=== PATIENT | female | born 1990 ===

== ENCOUNTER 2021-12-03 10:22 | Inpatient (IN) ==
[2021-12-04] MEDS ORDERED: LIDOCAINE 1% LOCAL 20 ML VIAL INFIL PRN (02:07)
[2021-12-04] MEDS ORDERED: SODIUM CHLORIDE 0.9% INJ 10 ML VIAL ONE (02:12)
[2021-12-04] MEDS ORDERED: LIDOCAINE 2%/EPINEPHRINE 1:200,000 20 ML SDV ONE (02:12)
[2021-12-04] MEDS ORDERED: BUPIVACAINE 0.25% 30 ML VIAL ONE (02:12)
[2021-12-04] MEDS ORDERED: ePHEDrine sulfate 50 MG/ML AMP ONE (02:12)
[2021-12-04] MEDS ORDERED: fentaNYL citrate 100 MCG/2 ML VIAL ONE (02:12)
[2021-12-04] MEDS ORDERED: fentaNYL 2MCG/ML ROPIVACAINE 1.25MG/ML 100 ML BAG EPI ONE (02:13)
[2021-12-04] MEDS ORDERED: PROMETHAZINE HCL 6.25 MG in SODIUM CHLORIDE 0.9% 50 ML IV PRN (02:19)
[2021-12-04] MEDS ORDERED: diphenhydrAMINE 50 MG/ML VIAL IV PRN (02:19)
[2021-12-04] MEDS ORDERED: fentaNYL 2MCG/ML ROPIVACAINE 1.25MG/ML 100 ML BAG EPI PRN (02:19)
[2021-12-04] MEDS ORDERED: ePHEDrine sulfate 50 MG/ML AMP IV PRN (02:19)
[2021-12-04] MEDS ORDERED: ONDANSETRON INJ 2 MG/ML 2 ML VIAL IV PRN (02:19)
[2021-12-04] MEDS ORDERED: NALBUPHINE HCL INJ 10 MG/ML AMP IV PRN (02:19)
[2021-12-04] MEDS ORDERED: NALOXONE HCL 0.4 MG/1 ML VIAL/CARP IV PRN (02:19)
[2021-12-04] MEDS ORDERED: NALOXONE HCL 1 MG in SODIUM CHLORIDE 0.9% 1000ML 1,000 ML IV PRN (02:19)
--- NOTE | 2021-12-04 02:20 | Anesthesiology Consultation ---
Date of Service December 04, 2021 Assessment & Plan Chart Review Chart Review: Patient NOT seen in Pre Admission Testing and Acceptable Risk for Labor Epidural Consults Requested none ASA ASA2 Proposed Anesthesia Anesthesia Type: Labor Epidural Risk / Benefits Reviewed With: PT / POA / Parent / Guardian, Accepts Plan and Informed Consent Obtained History Allergies Allergy/AdvReac Type Severity Reaction Status Date / Time bacitracin Allergy itchy, Verified 12/02/21 13:52 [From Triple Antibiotic] swelling gold Au 198 Allergy itchy, Verified 12/02/21 13:52 swelling neomycin Allergy itchy, Verified 12/02/21 13:52 [From Triple Antibiotic] swelling polymyxin B Allergy itchy, Verified 12/02/21 13:52 [From Triple Antibiotic] swelling Medications Home Medications Medication Instructions Recorded Confirmed Last Taken fluocinolone acetonide oil 0.01 % 5 drp otic (ear) BID PRN pain and 01/02/20 12/02/21 Unknown ear drops pruritis 0 days #20 mL prenat.vits,amari,[id number] 1 tab PO DAILY 04/14/21 12/02/21 Unknown ondansetron HCl 4 mg tablet 4 mg PO Q6H PRN nausea and 09/29/21 12/02/21 Unknown vomiting #20 tabs Past Medical History Medical History (Updated 04/14/21 @ 11:16 by Nichol LEO, ANDREZ) Asthma Sports induced History of chicken pox Itching of ear Otalgia Seasonal allergies Shoulder pain sports related Exercise / Class Metabolic Activity II 4-5 Yardwork/Stairs/Walk up hill Past Family History Family History (Updated 04/14/21 @ 10:59 by Nichol LEO RN) Aunt Hearing loss Grandfather Hearing loss Stroke Father Hypertension Grandmother Stroke Cancer Mother Allergies Sister Asthma Sister Down syndrome Sister ADHD Aunt Breast cancer Denies family history of Ovarian cancer No family history of adverse response to anesthesia No family history of bleeding disorder Heart disease Colorectal cancer Uterine cancer Past Surgical History Surgical History (Updated 04/14/21 @ 11:16 by Nichol LEO RN) Club-foot Club foot surgery H/O repair of right rotator cuff History of arthroplasty of left shoulder May 2020 Past Anesthesia History No Hx of Anesthesia Complications and No Family Hx of Anesthesia Complications History of PONV No Hx of PONV and No Hx of Motion Sickness Social History Smoking Status: Never smoker Hx Alcohol Use: No Hx Substance Use: No Physical Exam Vital Signs Last Vital Signs Pulse 77 12/04/21 01:58 BP 131/100 12/04/21 01:58 ENMT Mouth: no dentition abnormality Thyromental Distance: > or= 3.5 Finger Breadths Mallampati Class: II Neck normal visual inspection Respiratory normal respiratory effort Auscultation: lungs clear to auscultation bilaterally Cardiovascular Rate/Rhythm: regular rate and regular rhythm Psychiatric Orientation: alert
[2021-12-04] MEDS: LACTATED RINGER'S 1,000 ML IV PRN ×3 (02:22→11:15)
[2021-12-04 02:43] LABS: Hemoglobin 13.2 g/dl (12.0-16.0); Mean Corpuscular Hemoglobin 29.2 pg (25.0-34.0); Mean Corpuscular Hgb Conc 33.8 g/dL (32.0-36.0); Mean Corpuscular Volume 86.3 fL (80.0-100.0); Mean Platelet Volume 10.7 fL (9.4-12.3); Platelet Count 195 K/uL (130-400); RDW Coefficient of Variation 12.9 % (11.5-14.5); RDW Standard Deviation 40.3 fL (36.4-46.3); Red Blood Count 4.52 M/uL (3.93-5.22); White Blood Count 13.55 K/ul (4.8-10.8)
--- NOTE | 2021-12-04 07:10 | History & Physical Report ---
Date of Service December 04, 2021 Assessment & Plan (1) Normal labor: Plan: admit, epidural, expect Admission and Anticipated Discharge Date Admission Date: December 04, 2021 History of Present Illness Chief Complaint: labor MARGRET Calculator Estimated Delivery Date Method Current WG Current Estimate 12/03/21 Ultrasound #1 39w 6d Other Estimates 11/25/21 LMP (Certain) 41w 0d LMP: 02/18/21 : 1 Full term: 0 Premature: 0 Total Number of Induced Abortions: 0 Total Number of Spontaneous Abortions: 0 Ectopics: 0 Multiple births: 0 Number of Living Children: 0 and Delivery Plans Moderna COVID vaccine *06/14/20 *07/12/20 *Booster 09/19/21 Primary Care Provider: Elaine Alejandro PA-C Allergies Allergy/AdvReac Type Severity Reaction Status Date / Time bacitracin Allergy itchy, Verified 12/04/21 03:01 [From Triple Antibiotic] swelling gold Au 198 Allergy itchy, Verified 12/04/21 03:01 swelling neomycin Allergy itchy, Verified 12/04/21 03:01 [From Triple Antibiotic] swelling nickel Allergy Rash Verified 12/04/21 05:08 polymyxin B Allergy itchy, Verified 12/04/21 03:01 [From Triple Antibiotic] swelling Home Medications Medication Instructions Recorded Confirmed Type fluocinolone acetonide oil 0.01 % 5 drp otic (ear) BID PRN pain and 01/02/20 12/04/21 Rx ear drops pruritis 0 days #20 mL prenat.vits,amari,[id number] 1 tab PO DAILY 04/14/21 12/04/21 History ondansetron HCl 4 mg tablet 4 mg PO Q6H PRN nausea and 09/29/21 12/04/21 Rx vomiting #20 tabs albuterol 90 mcg/actuation aerosol 1 mcg inhalation DAILY PRN Allergy 12/04/21 12/04/21 History inhaler Symptoms doxylamine succinate 25 mg tablet 25 mg PO HS PRN Nausea 12/04/21 12/04/21 History (Unisom (doxylamine)) vitamin B6-vitamin E-magnesium 1 tab PO DAILY PRN Nausea 12/04/21 12/04/21 History tablet Patient History Medical History (Updated 12/04/21 @ 07:09 by Tim Doyle MD, FACOG) Asthma Sports induced- PRN use of asthma History of chicken pox Itching of ear Otalgia Seasonal allergies Shoulder pain sports related Surgical History Club-foot Club foot surgery H/O repair of right rotator cuff History of arthroplasty of left shoulder May 2020 Family History (Updated 04/14/21 @ 10:59 by Nichol LEO RN) Aunt Hearing loss Grandfather Hearing loss Stroke Father Hypertension Grandmother Stroke Cancer Mother Allergies Sister Asthma Sister Down syndrome Sister ADHD Aunt Breast cancer Denies family history of Ovarian cancer No family history of adverse response to anesthesia No family history of bleeding disorder Heart disease Colorectal cancer Uterine cancer Social History (Updated 12/04/21 @ 03:51 by Estrellita Diehl, RN) Smoking Status: Never smoker Hx Alcohol Use: No Hx Substance Use: No Preferred Language: Italian Communication Ability: Effective Bow Tacker Required: No Beliefs That Will Affect Care: None marital status: marital status details: Fredy Beverly (30) [phone] Current Living Situation: Spouse Current Living Situation Comment: [facility] current occupational status: employed current occupation: [employer] How many Children do You have: 0 Other Information That Helps Us Care for You: No Feels Safe at Home: Yes Safety Concerns: Feels Safe At This Time Physical Activity Frequency: 5-6 Times per Week Physical Activity Frequency Comment: former volleyball, basketball; now kickboxing Assistive Devices: None Results & Data ([facility]) Vital Signs (Past 12 Hours) Vital Signs Temp Pulse Resp BP Pulse Ox O2 Del Method 12/04/21 03:05 98.1 F 18 Room Air 12/04/21 07:00 18 12/04/21 07:00 18 12/04/21 07:03 99 12/04/21 07:03 92 H 12/04/21 06:58 97 12/04/21 06:58 91 H 12/04/21 06:54 90 12/04/21 06:54 124/83 12/04/21 06:53 98 12/04/21 06:53 87 12/04/21 06:48 97 12/04/21 06:48 88 12/04/21 06:43 98 12/04/21 06:43 96 H 12/04/21 06:40 84 12/04/21 06:40 126/88 12/04/21 06:38 98 12/04/21 06:38 96 H 12/04/21 06:30 18 12/04/21 06:30 18 12/04/21 06:33 98 12/04/21 06:33 84 12/04/21 06:28 98 12/04/21 06:28 91 H 12/04/21 06:24 97 H 12/04/21 06:24 126/98 12/04/21 06:23 99 12/04/21 06:23 89 12/04/21 06:18 99 12/04/21 06:18 94 H 12/04/21 06:13 99 12/04/21 06:13 83 12/04/21 06:08 100 12/04/21 06:08 96 H 12/04/21 06:00 18 12/04/21 06:00 18 12/04/21 06:03 99 12/04/21 06:03 92 H 12/04/21 05:39 98.1 F 12/04/21 05:58 99 12/04/21 05:58 103 H 12/04/21 05:54 83 12/04/21 05:54 136/93 12/04/21 05:53 100 12/04/21 05:53 116 H 12/04/21 05:48 98 12/04/21 05:48 107 H 12/04/21 05:43 97 12/04/21 05:43 81 12/04/21 05:40 85 12/04/21 05:40 125/78 12/04/21 05:38 98 12/04/21 05:38 93 H 12/04/21 05:30 18 12/04/21 05:30 18 12/04/21 05:33 97 12/04/21 05:33 89 12/04/21 05:28 97 12/04/21 05:28 82 12/04/21 05:24 75 12/04/21 05:24 133/78 12/04/21 05:23 97 12/04/21 05:23 76 12/04/21 05:18 97 12/04/21 05:18 75 12/04/21 05:13 97 12/04/21 05:13 92 H 12/04/21 05:10 105 H 12/04/21 05:10 115/78 12/04/21 05:08 97 12/04/21 05:08 81 12/04/21 05:00 18 12/04/21 05:00 18 12/04/21 05:03 97 12/04/21 05:03 76 12/04/21 04:58 97 12/04/21 04:58 82 12/04/21 04:55 76 12/04/21 04:55 124/77 12/04/21 04:53 96 12/04/21 04:53 78 12/04/21 04:48 97 12/04/21 04:48 77 12/04/21 04:43 97 12/04/21 04:43 83 12/04/21 04:30 18 12/04/21 04:30 18 12/04/21 04:39 93 H 12/04/21 04:39 118/76 12/04/21 04:38 98 12/04/21 04:38 94 H 12/04/21 04:33 97 12/04/21 04:33 93 H 12/04/21 04:28 97 12/04/21 04:28 76 12/04/21 04:26 87 12/04/21 04:26 108/68 12/04/21 04:23 98 12/04/21 04:23 75 12/04/21 04:18 99 12/04/21 04:18 79 12/04/21 04:13 97 12/04/21 04:13 76 12/04/21 04:10 77 12/04/21 04:10 119/80 12/04/21 04:08 98 12/04/21 04:08 77 12/04/21 04:03 98 12/04/21 04:03 77 12/04/21 03:58 97 12/04/21 03:58 73 12/04/21 03:53 98 12/04/21 03:53 72 12/04/21 03:54 70 12/04/21 03:54 123/80 12/04/21 03:48 98 12/04/21 03:48 73 12/04/21 03:30 18 12/04/21 03:30 18 12/04/21 03:43 99 12/04/21 03:43 76 12/04/21 03:40 74 12/04/21 03:40 126/82 12/04/21 03:00 18 12/04/21 03:00 18 12/04/21 03:38 98 12/04/21 03:38 82 12/04/21 03:33 98 12/04/21 03:33 84 12/04/21 03:28 99 12/04/21 03:28 79 12/04/21 03:23 98 12/04/21 03:23 78 12/04/21 03:24 80 12/04/21 03:24 127/81 12/04/21 03:18 98 12/04/21 03:18 78 12/04/21 03:13 98 12/04/21 03:13 74 12/04/21 03:11 80 12/04/21 03:11 126/84 12/04/21 03:08 98 12/04/21 03:08 75 12/04/21 03:03 98 12/04/21 03:03 78 12/04/21 02:58 98 12/04/21 02:58 81 12/04/21 02:53 98 12/04/21 02:53 78 12/04/21 02:54 81 12/04/21 02:54 124/88 12/04/21 02:52 80 12/04/21 02:52 125/85 12/04/21 02:50 80 12/04/21 02:50 129/93 12/04/21 02:48 97 12/04/21 02:48 82 12/04/21 02:48 81 12/04/21 02:48 143/97 H 12/04/21 02:46 85 12/04/21 02:46 139/92 12/04/21 02:43 85 98 12/04/21 02:44 82 126/91 12/04/21 02:42 80 133/93 12/04/21 02:40 86 139/98 12/04/21 02:38 97 12/04/21 02:38 83 12/04/21 02:38 77 138/98 12/04/21 02:36 96 H 145/99 H 12/04/21 02:34 83 142/92 H 12/04/21 02:33 85 99 12/04/21 02:32 92 H 152/101 H 12/04/21 02:28 82 100 12/04/21 02:29 83 149/94 H 12/04/21 01:58 77 131/100 Coding Level of Care Code None Diagnoses Normal labor O80; Z37.9
[2021-12-04] MEDS ORDERED: OXYTOCIN 30 UNITS/500 ML BAG IV PRN ×2 (08:36→12:49)
[2021-12-04] MEDS: OXYTOCIN 30 UNITS/500 ML BAG IV PRN ×2 (12:00→12:48)
--- NOTE | 2021-12-04 12:39 | Delivery Summary ---
Vaginal Delivery Summary Date of Service December 04, 2021 Vaginal Delivery Summary and 2nd Degree LAC PREOPERATIVE DIAGNOSIS: 1. Single intrauterine at 40 1/7 wga 2. Labor 3. SROM POSTOPERATIVE DIAGNOSIS: 1. Single intrauterine at 40 1/7 wga 2. Labor 3. SROM 4. Delivered PROCEDURE: 1. Normal spontaneous vaginal delivery. SURGEON: Magdalena Valdez MD ANESTHESIA: Epidural. ESTIMATED BLOOD LOSS: 500 mL FLUIDS: Continuous LR. URINE OUTPUT: None. COMPLICATIONS: None. CONDITION: Stable. INDICATIONS: 31 y/o G1 at 40 1/7 wga presented with ROM overnight. She progressed spontaneously to complete. Contractions spaced out slightly so pitocin was started to get contractions regular while pushing. FINDINGS: A viable female , weight pending with Apgars of 8 and 9 at 1 and 5 minutes respectively. SPECIMEN: Cord blood OPERATIVE REPORT: The patient progressed to 10 cm, 100% effaced and +2 station, pushed over intact perineum with anesthesia to deliver a viable female infant, weight and Apgars as above. Head of delivered in OP position. No nuchal cord was present, but noted around the baby's leg. Body and shoulders were delivered without difficulty. was delivered to maternal abdomen and nursing staff. Delayed cord clamping was performed for 60 seconds. Cord was clamped and cut. Cord blood was obtained. Placenta delivered spontaneously intact with 3-vessel cord. IV oxytocin and fundal massage were given for excell ent hemostasis. Vagina, cervix, perineum were inspected. Bilateral sulcal lacerations with the pt's right laceration extending near the cervix, sulci were repaired using 3-0 vicryl. There was also a second degree laceration that was noted that began where the two sulci met, this was repaired with 3-0 vicryl. There was additional bleeding noted on pt's left sulcus that was made hemostatic with additional stitches of 3-0 vicryl. Majority of EBL was from tears. There was then excellent hemostasis. Sponge and needle counts correct x2. No sponges were left behind. Mother and stable in immediate period. [facility] Vaginal Delivery Charge Vaginal Delivery Codes: 03848 global code for the antepartum, delivery, and pos t- Delivery Type Details: and 2nd Degree LAC
[2021-12-04] MEDS ORDERED: HYDROCORTISONE ACETATE 25 MG SUPP PR PRN (12:49)
[2021-12-04] MEDS ORDERED: BENZOCAINE 20% AER SPR 82.5 GM CAN EXT PRN (12:49)
[2021-12-04] MEDS ORDERED: ACETAMINOPHEN 325 MG TAB PO PRN (12:49)
[2021-12-04] MEDS ORDERED: bisacodyL 10 MG SUPP PR PRN (12:49)
[2021-12-04] MEDS ORDERED: DIPHTHERIA/TETANUS/PERTUSSIS 0.5 ML SYR/VIAL IM ONE (12:49)
[2021-12-04] MEDS ORDERED: ALBUTEROL HFA 8 GM INHALER INH PRN (13:12)
[2021-12-04] MEDS: IBUPROFEN 600 MG TAB PO PRN ×3 (14:15→22:46)
--- NOTE | 2021-12-04 14:26 | Anesthesia Procedure Note ---
Date of Service December 04, 2021 Anesthesia Post Epidural Note Vital Signs Vital Signs: Temp Pulse Resp BP Pulse Ox O2 Del Method 37.3 C 99 H 18 132/76 100 12/04/21 12:40 12/04/21 14:23 12/04/21 12:40 12/04/21 14:23 12/04/21 12:28 12/04/21 03:05 Pain Intensity Abdomen: Pain Intensity: 1 Notes Mental Status: alert / awake / arousable and participated in evaluation Nausea / Vomiting: adequately controlled Pain: adequately controlled Airway Patency, RR, SpO2: stable & adequate BP & HR: stable & adequate Hydration State: stable & adequate Neuraxial Anesthesia: was administered and sensory block is resolving Anesthetic Complications: no major complications apparent and Pt Satisfied with anesthetic care Epidural: Removed without complications and With tip intact
[2021-12-04] MEDS: DOCUSATE SODIUM 100 MG CAP PO SCH (20:36)
[2021-12-05] MEDS: IBUPROFEN 600 MG TAB PO PRN ×5 (03:25→21:16)
--- NOTE | 2021-12-05 07:14 | Obstetrical Progress Note ---
Date of Service <Brice Busby - Last Filed: 12/05/21 07:14> December 05, 2021 Assessment & Plan <Brice Busby DO - Last Filed: 12/05/21 07:14> (1) Encounter for care and examination after delivery: - Feels well today. Eating well, voiding well, ambulating well. - Pain well controlled with ibuprofen 600mg Q4H PRN - Routine care -- OOB, ambulation, diet progression as tolerated - After discharge will have 6 week follow-up with Dr. Valdez. <Magdalena Valdez MD - Last Filed: 12/05/21 07:55> (1) Encounter for care and examination after delivery: Subjective <Brice Busby - Last Filed: 12/05/21 07:14> Ambulation: ambulating normally Voiding: no voiding problems Passing Gas:: Yes Diet Tolerance:: regular diet Lochia:: Small Feeding Type:: breast feeding Current Pain Level(1-10): 4 Patient is a 31 y/o female G1 who is now PPD # 1 following spontaneous vaginal delivery at 40 weeks. Reports feeling well overall this morning. Moderate abdominal cramping & 4/10 pain well managed on analgesics. Voiding well. Tolerating meals overnight and able to ambulate some. Able to pass gas. Has some persistent lochia with some improvement this morning. Currently breast feeding. Review of Systems Denies fever, chills, sweats Denies shortness of breath, difficulty breathing, chest pain, palpitations, chest pressure. Denies breast pain. Denies dysuria. Denies headache or changes in vision. Physical Exam <Brice Busby - Last Filed: 12/05/21 07:14> General: Alert, oriented. No acute distress. Cardiac: Regular rate and rhythm, no murmurs/rubs/gallops. Respiratory: Clear to auscultation bilaterally a/p, no wheezes/rales/rhonchi. No increased work of breathing. Symmetrical chest rise. No respiratory distress. Abdomen: Soft, nontender, nondistended. Bowel sounds present. Uterus: Uterine fundus firm, palpable below umbilicus. Lower Extremities: No lower extremity edema or swelling. No deep calf pain. Maximilian's negative bilaterally. Results & Data ([facility]) <Brice Busby DO - Last Filed: 12/05/21 07:14> Vital Signs (Past 12 Hours) Vital Signs Temp Pulse Resp BP Pulse Ox O2 Del Method 12/05/21 03:50 36.8 C 83 18 116/83 Room Air 12/04/21 23:30 36.8 C 94 H 18 112/77 Room Air 12/04/21 19:35 36.7 C 85 18 126/87 98 Room Air <Magdalena Valdez MD - Last Filed: 12/05/21 07:55> Co-Signing Physician Notes Resident Physician Supervision Note: I interviewed and examined the patient. Discussed with Dr. Busby and agree with findings and plan as documented in the note. Any exceptions or clarifications are listed here: PP1 s/p , doing well. Continue routine pp care Documented By: Magdalena Valdez MD Resident Activity Tracking <Brice Busby DO - Last Filed: 12/05/21 07:14> Resident Involvement: Resident Care Provided Care Provided: OB Delivery
[2021-12-05 07:37] LABS: Hematocrit (blood only) 33.4 % (34.1-44.9); Hemoglobin 11.1 g/dl (12.0-16.0); Mean Corpuscular Hemoglobin 29.4 pg (25.0-34.0); Mean Corpuscular Hgb Conc 33.2 g/dL (32.0-36.0); Mean Corpuscular Volume 88.4 fL (80.0-100.0); Mean Platelet Volume 10.6 fL (9.4-12.3); Platelet Count 181 K/uL (130-400); RDW Coefficient of Variation 13.2 % (11.5-14.5); RDW Standard Deviation 42.4 fL (36.4-46.3); Red Blood Count 3.78 M/uL (3.93-5.22); White Blood Count 15.98 K/ul (4.8-10.8)
[2021-12-05] MEDS: FERROUS SULFATE 325 MG TAB PO SCH (08:55)
[2021-12-05] MEDS: PRENATAL VITAMIN 1 TAB PO SCH (08:55)
[2021-12-05] MEDS: DOCUSATE SODIUM 100 MG CAP PO SCH ×2 (08:55→21:17)
[2021-12-05] MEDS ORDERED: bisacodyL 5 MG TABEC PO SCH (20:00)
[2021-12-06] MEDS: IBUPROFEN 600 MG TAB PO PRN ×2 (05:18→08:54)
--- NOTE | 2021-12-06 08:07 | Obstetrical Progress Note ---
Date of Service December 06, 2021 Assessment & Plan (1) Encounter for care and examination after delivery: D/C to home today, instructions reviewed with patient and FOB Subjective Ambulation: ambulating normally Voiding: no voiding problems Passing Gas:: Yes Diet Tolerance:: regular diet Lochia:: Small Feeding Type:: breast feeding Physical Exam Constitutional WD/WN, vitals as above Eyes PERRL, conjunctivae normal, anicteric sclerae Neck normal visual inspection Respiratory normal respiratory effort and able to speak in complete sentences; no respiratory distress and no labored breathing Cardiovascular Rate/Rhythm: regular rate and regular rhythm Extremities: no edema Chest (Breasts) Chest: normal inspection of chest Gastrointestinal (Abdomen) Inspection/Auscultation: abdomen normal to inspection Soft, postgravid Psychiatric A+Ox3, euthymic affect Genitourinary OB Exam Abdomen: + fundal height Fundus: + firm and + relation to umbilicus (fundus just below umbilicus); not tender Results & Data ([facility]) Vital Signs (Past 12 Hours) Vital Signs Temp Pulse Resp BP Pulse Ox O2 Del Method 12/05/21 21:29 98.1 F 94 H 16 117/86 98 Room Air
[2021-12-06] MEDS: PRENATAL VITAMIN 1 TAB PO SCH (08:54)
[2021-12-06] MEDS: DOCUSATE SODIUM 100 MG CAP PO SCH (08:54)
[2021-12-06] MEDS: FERROUS SULFATE 325 MG TAB PO SCH (08:54)
[2021-12-06 10:27] LABS: Hematocrit (blood only) 32.4 % (34.1-44.9); Mean Corpuscular Hemoglobin 29.8 pg (25.0-34.0); Mean Corpuscular Volume 87.8 fL (80.0-100.0); Mean Platelet Volume 10.4 fL (9.4-12.3); Platelet Count 215 K/uL (130-400); RDW Coefficient of Variation 13.3 % (11.5-14.5); RDW Standard Deviation 42.3 fL (36.4-46.3); Red Blood Count 3.69 M/uL (3.93-5.22); White Blood Count 13.48 K/ul (4.8-10.8)
[2021-12-06 10:54] LABS: Albumin Globulin Ratio 1.2 (0.9-2); Albumin Level 3.2 gm/dl (3.4-5.0); BUN Creatinine Ratio 12.9 (10-20); Bilirubin,Total 0.3 mg/dl (0.2-1.0); Calcium 8.9 mg/dl (8.5-10.1); Creatinine Clr Calc Pharmacy 151.3 ml/min; Est GFR (African American) 135.7 ml/min; Est GFR (Non-African American) 117.1 ml/min; Globulin 2.7 gm/dl (2.5-4.0); Potassium 4.1 mmol/L (3.5-5.1); Total Protein 5.9 gm/dl (6.0-8.3)
== END 2021-12-06 13:20 | disposition home or self-care (01) | DRG 807 ==
LOC: 4S1 12-04 01:30 → 4E2 12-04 15:41